=== PATIENT | female | born 1965 | race Caucasian/White ===

== ENCOUNTER 2020-12-25 09:30 | Emergency (ER) | payer SELFPAY ==
[2020-12-25] MEDS ORDERED: Acetaminophen 500 MG TAB ONE (10:31)
[2020-12-25] MEDS ORDERED: Ibuprofen 800 MG TAB ONE (10:31)
[2020-12-25] MEDS ORDERED: Dexamethasone 20 MG/5 ML VIAL ONE (10:31)
== END 2020-12-25 10:38 | disposition home or self-care (01) ==
LOC: NAV ERS 09:30
DX: S43.401A Unspecified sprain of right shoulder joint, initial encounter (principal); M62.838 Other muscle spasm; E03.9 Hypothyroidism, unspecified; F17.210 Nicotine dependence, cigarettes, uncomplicated; Z79.899 Other long term (current) drug therapy; W19.XXXA Unspecified fall, initial encounter
CPT/HCPCS: 71046; J1100